=== PATIENT | female | born 1955 | race African-American/Black ===

== ENCOUNTER → 2017-04-09 | Day surgery (SDC) | payer BC ==
[~2017-04-09] MED LIST: ATENOLOL50 MG PO; CEFAZOLIN SOD 1 GM/NS 50ML 50 ML IV ONE; DEXAMETHASONE SOD PHOS INJ 4 MG/ML VIAL ONE; FENTANYL CITRATE/PF 100MCG/2 ML INJ ONE; ONDANSETRON HCL INJ 2 MG/ML VIAL ONE; PRAVASTATIN SOD40 MG PO; PROPOFOL IV EMULSION 10 MG/ML 20 ML VIAL ONE; SEVOFLURANE INHAL SOLN 250 ML PEN BTL ONE
--- NOTE | 2017-04-09 14:12 | Operative Report ---
DATE OF PROCEDURE: April 09, 2017 STRETCH PRESS OPERATOR: Christian Cervantes PA-C The patient was brought to the operating room for induction of anesthesia. Throughout this case, my PA's assistance was necessary for retraction of soft tissue and positioning of the extremity. This allows for efficient and technically successful execution of the operation and is considered medically necessary. PREOPERATIVE DIAGNOSIS: Left knee medial meniscal tear. POSTOPERATIVE DIAGNOSIS: Left knee medial meniscal tear. PROCEDURES 1. Left knee arthroscopy. 2. Partial medial meniscectomy. INDICATIONS: The patient is a 61-year-old lady who has clinic signs and symptoms consistent with a left knee medial meniscus tear. She has failed conservative management and would like to proceed with arthroscopic intervention. The risks and benefits have been explained. She states she understands and wishes to proceed. DESCRIPTION OF PROCEDURE: The patient was brought to the operating room and placed under general anesthetic. She received prophylactic antibiotics in the holding area. Her left lower extremity was prepped and draped in a sterile manner. A preoperative time out was performed. A tourniquet placed on the upper thigh and was briefly inflated to 300 mmHg. Standard arthroscopy portals were established. The knee was insufflated with sterile saline and systematically inspected. The patellofemoral groove was well-preserved. There was a radial tear of the posterior horn of the medial meniscus that was flipped up underneath the tibial articular surface. This was reduced with a probe. A partial medial meniscectomy was performed using a combination of biting forceps and a meniscal shaver. The cruciate ligaments and lateral compartment were inspected. 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 All of these and the meniscus were gently debrided back to a hook stable margin. The knee was thoroughly irrigated. The arthroscopic instruments were removed. The portal incisions were closed with interrupted nylon stitches. A sterile bandage was applied. The patient was extubated and transported to the recovery room in stable condition. There was no blood loss. All needle and sponge counts were correct. Job#: [id number] MICHAEL
== END | disposition home or self-care (01) ==
LOC: OR 05:58
PROVIDERS: ATTEND Specialist
DX: S83.232A Complex tear of medial meniscus, current injury, left knee, initial encounter (principal); M94.262 Chondromalacia, left knee; I25.10 Atherosclerotic heart disease of native coronary artery without angina pectoris; I10 Essential (primary) hypertension; E78.5 Hyperlipidemia, unspecified; X58.XXXA Exposure to other specified factors, initial encounter; Z01.810 Encounter for preprocedural cardiovascular examination
CPT/HCPCS: 29881; 93005; J1100; J2405